=== PATIENT | male | born 1935 | race African-American/Black ===

== ENCOUNTER 2019-05-18 13:25 | Inpatient (IN) | payer MEDICARE, MEDICAID ==
[~2019-05-18] VITALS: Ht 170.2 cm; Wt 64.0 kg
[2019-05-18 15:03] LABS: BASOPHILS % 0.7 % (0.0-2.0); EOSINOPHILS % 1.3 % (0.0-5.0); HEMATOCRIT. 33.7 % (42.0-52.0); HEMOGLOBIN. 11.1 g/dL (14.0-18.0); MEAN CORPUSCULAR HEMOGLOBIN 30.3 pg (28.0-32.0); MEAN PLATELET VOLUME 9.6 fl (7.4-10.4); MONOCYTES % 8.1 % (2.0-8.0); NEUTROPHILS % 59.9 % (40.0-76.0); PLATELET 148 x1000/uL (130-400); RED BLOOD CELL COUNT 3.66 mill/uL (4.7-6.1); RED CELL DISTRIBUTION WIDTH 14.7 % (11.6-14.6)
[2019-05-18 15:07] LABS: CHLORIDE 109 mEq/L (98-107)
[2019-05-18 15:11] LABS: ETHANOL BLOOD < 10 mg/dL
[2019-05-18 15:32] LABS: CLARITY URINE CLEAR (CLEAR); COLOR URINE YELLOW (YELLOW); KETONES URINE NEGATIVE (NEGATIVE); LEUKOCYTE ESTERASE URINE NEGATIVE (NEGATIVE); NITRITE URINE NEGATIVE (NEGATIVE); OCCULT BLOOD URINE TRACE (NEGATIVE); PROTEIN URINE NEGATIVE (NEGATIVE); SPECIFIC GRAVITY URINE 1.011 (1.005-1.030); UROBILINOGEN URINE 0.2 E.U./dL (0.2-1.0)
[2019-05-18 16:00] LABS: *AMPHETAMINES SCREEN URINE NEGATIVE (NEGATIVE); *BARBITURATES SCREEN URINE NEGATIVE (NEGATIVE); *BENZODIAZEPINES SCREEN URINE NEGATIVE (NEGATIVE)
[2019-05-18 16:01] LABS: *COCAINE SCREEN URINE NEGATIVE (NEGATIVE); CANNABINOID URINE SCREEN NEGATIVE (NEGATIVE); METHADONE URINE SCREEN NEGATIVE (NEGATIVE); OPIATES URINE SCREEN NEGATIVE (NEGATIVE); PHENCYCLIDINE URINE SCREEN NEGATIVE (NEGATIVE)
[2019-05-18] MEDS ORDERED: ACETAMINOPHEN 325MG TABLET PO PRN (20:15)
[2019-05-18] MEDS ORDERED: HYDRALAZINE 20MG/ML VIAL IV PRN (20:15)
[2019-05-18] MEDS ORDERED: IPRATROPIUM/ALBUTEROL 0.5-3(2.5)MG/3ML NEB HHN PRN (20:15)
[2019-05-18] MEDS ORDERED: ONDANSETRON HCL 4MG/2ML INJ IV PRN (20:15)
[2019-05-18] MEDS ORDERED: DOCUSATE SODIUM 100MG CAPSULE PO PRN (20:15)
[2019-05-18] MEDS ORDERED: GUAIFENESIN 200MG/10ML SUGAR FREE UDC PO PRN (20:15)
[2019-05-18] MEDS ORDERED: NA PHOS,M-B/NA PHOS,DI-BA ENEMA 118ML PR PRN (20:15)
[2019-05-18] MEDS ORDERED: DIPHENHYDRAMINE 50MG/ML VIAL IV PRN (20:15)
[2019-05-18] MEDS ORDERED: LORAZEPAM 2MG/ML CPJ IV PRN (20:15)
[2019-05-18] MEDS ORDERED: CLONIDINE 0.1MG TABLET PO PRN (20:15)
[2019-05-18] MEDS ORDERED: MAGNESIUM/ALUMINUM HYDROXIDE/SIMETHICONE 30ML UDC PO PRN (20:15)
[2019-05-18] MEDS ORDERED: HYDROCODONE/ACETAMINOPHEN 5/325MG TABLET PO PRN (20:15)
[2019-05-18] MEDS ORDERED: MORPHINE SULFATE 2 MG/ML CPJ (NOT FOR IM USE) IV PRN (20:15)
[2019-05-18 23:07] VITALS: BP 150/80
[2019-05-19] MEDS: SODIUM CHLORIDE 0.9% INJ 3ML FLUSH IVF SCH ×3 (01:49→21:41)
[2019-05-19 02:22] LABS: CREATINE KINASE 81 IU/L (39-308)
[2019-05-19 02:23] LABS: CREATINE KINASE MB FRACTION < 1.0 ng/mL (0.5-3.6)
[2019-05-19 04:00] VITALS: BP 140/81
[2019-05-19 06:50] LABS: BASOPHILS % 0.7 % (0.0-2.0); EOSINOPHILS % 2.1 % (0.0-5.0); HEMATOCRIT. 29.8 % (42.0-52.0); LYMPHOCYTES % 35.8 % (20.0-50.0); MEAN CORPUSCULAR HEMOGLOBIN 30.8 pg (28.0-32.0); MEAN CORPUSCULAR VOLUME 91.6 fL (80.0-94.0); MEAN PLATELET VOLUME 9.5 fl (7.4-10.4); MONOCYTES % 11.1 % (2.0-8.0); NEUTROPHILS % 50.3 % (40.0-76.0); PLATELET 149 x1000/uL (130-400); RED BLOOD CELL COUNT 3.26 mill/uL (4.7-6.1)
[2019-05-19 07:38] LABS: CHLORIDE 110 mEq/L (98-107)
[2019-05-19 07:58] LABS: LDL CHOLESTEROL 100 mg/dL (5-100)
[2019-05-19 07:59] LABS: CREATINE KINASE 81 IU/L (39-308); T4 FREE 1.44 ng/dL (0.76-1.46)
[2019-05-19 08:00] VITALS: BP 154/82
[2019-05-19 08:00] LABS: CREATINE KINASE MB FRACTION < 1.0 ng/mL (0.5-3.6); HDL CHOLESTEROL 65 mg/dL (40-59)
[2019-05-19] MEDS: ENOXAPARIN 40MG/0.4ML SYR SUBCUT SCH (09:23)
[2019-05-19 12:59] VITALS: BP 132/97
[2019-05-19 15:33] LABS: CREATINE KINASE 107 IU/L (39-308)
[2019-05-19 15:34] LABS: CREATINE KINASE MB FRACTION < 1.0 ng/mL (0.5-3.6); T4 FREE 1.46 ng/dL (0.76-1.46)
[2019-05-19 16:16] VITALS: BP 132/73
[2019-05-19 19:13] LABS: VITAMIN B12 SERUM 287 pg/mL (211-911)
[2019-05-19 20:00] VITALS: BP 132/85
[2019-05-19 23:59] LABS: CREATINE KINASE 94 IU/L (39-308)
[2019-05-20] VITALS: BP 113/66
[2019-05-20 00:02] LABS: CREATINE KINASE MB FRACTION < 1.0 ng/mL (0.5-3.6)
[2019-05-20 04:00] VITALS: BP 111/75
[2019-05-20] MEDS: SODIUM CHLORIDE 0.9% INJ 3ML FLUSH IVF SCH ×3 (05:08→20:45)
[2019-05-20 07:28] LABS: CREATINE KINASE 87 IU/L (39-308)
[2019-05-20 07:29] LABS: CREATINE KINASE MB FRACTION < 1.0 ng/mL (0.5-3.6)
[2019-05-20 08:00] VITALS: BP 143/80
[2019-05-20] MEDS: ENOXAPARIN 40MG/0.4ML SYR SUBCUT SCH (09:52)
[2019-05-20 11:43] VITALS: BP 158/85
[2019-05-20 16:00] VITALS: BP 104/63
[2019-05-20 20:51] VITALS: BP 143/86
[2019-05-21 00:15] VITALS: BP 96/69
[2019-05-21 04:00] VITALS: BP 140/53
[2019-05-21 08:00] VITALS: BP 96/63
[2019-05-21] MEDS: SODIUM CHLORIDE 0.9% INJ 3ML FLUSH IVF SCH ×2 (09:31→14:00)
[2019-05-21] MEDS: ENOXAPARIN 40MG/0.4ML SYR SUBCUT SCH (09:31)
[2019-05-21 12:00] VITALS: BP 109/84
== END 2019-05-21 14:34 | disposition home or self-care (01) | DRG 74 ==
LOC: ER 13:25 → 7WST 18:40 → EDBEDREQTM 18:53 → EDBEDREQ 18:53 → ENRESERV 20:38
PROVIDERS: ADMIT Internal Medicine; ATTEND Internal Medicine
DX: G90.8 Other disorders of autonomic nervous system (principal); R55 Syncope and collapse; D64.9 Anemia, unspecified; E78.5 Hyperlipidemia, unspecified; I10 Essential (primary) hypertension; Z60.2 Problems related to living alone; Z87.891 Personal history of nicotine dependence
CPT/HCPCS: 36415; 80061; 80305; 80320; 81003; 82550; 82553; 82607; 83036; 83880; 84439; 84443; 84484; 85379; 93005; 93306; 93880; 93970; 97161; 99285; J1200; J1650; J2060; G0480